=== PATIENT | female | born 2000 | race Two or more races ===

== ENCOUNTER 2022-07-14 15:36 | Emergency (ER) | payer MEDICAID ==
[~2022-07-14] VITALS: Ht 162.6 cm; Wt 54.4 kg
--- NOTE | 2022-07-14 16:02 | NUR ---
DR HAYWARD AT BEDSIDE FOR EVAL
--- NOTE | 2022-07-14 16:07 | NUR ---
URINE SAMPLE COLLECTED AND SENT TO LAB
[2022-07-14] MEDS ORDERED: ONDANSETRON 4 MG TAB.RAPDIS ONE (16:08)
[2022-07-14 16:23] LABS: BILIRUBIN,URINE NEGATIVE (NEGATIVE); COLOR,URINE YELLOW (YELLOW); LEUKOCYTE ESTERASE ,URINE NEGATIVE (NEGATIVE); NITRITE, URINE NEGATIVE (NEGATIVE); PROTEIN,URINE NEGATIVE (NEGATIVE); UGLUCOSE NEGATIVE (NEGATIVE)
[2022-07-14] MEDS ORDERED: ONDANSETRON 4 MG TAB.RAPDIS SL ONE (16:30)
--- NOTE | 2022-07-14 16:40 | NUR ---
PT REFUSED ZOFRAN MEDICATION, INFORMED ABT RISKS AND BENEFITS. PT A/O X4. DR HAYWARD MADE AWARE.
[2022-07-14 16:50] LABS: BACTERIA,URINE Few /HPF (None Seen); RBC,URINE 0-2 /HPF (0-2); SQUAMOUS EPITHELIAL CELL,UR Few /HPF (None Seen); WBC,URINE NONE SEEN /HPF (0-3)
[2022-07-14 16:51] LABS: BASOPHILS % (AUTO) 0.3 % (0.0-2.0); EOSINOPHILS % (AUTO) 0.7 % (0.0-6.0); HEMATOCRIT 38 % (33-45); HEMOGLOBIN 12.5 g/dL (11.5-14.8); LYMPHOCYTES # (AUTO) 1.5 K/uL (0.8-4.8); LYMPHOCYTES % (AUTO) 20.9 % (20.0-44.0); MEAN CORPUSCULAR HGB CONC 33 g/dl (31.0-36.0); MEAN CORPUSCULAR VOLUME 86 fL (82-100); MONOCYTES # (AUTO) 0.6 K/uL (0.1-1.30); MONOCYTES % (AUTO) 7.8 % (2.0-12.0); NEUTROPHILS % (AUTO) 70.3 % (43.0-81.0); PLATELET COUNT (AUTO) 235 K/uL (150-450); RED BLOOD CELL COUNT(AUTO) 4.41 MIL/uL (4.0-5.2); WHITE BLOOD COUNT (AUTO) 7.1 K/uL (4.3-11.0)
[2022-07-14 17:08] LABS: ALBUMIN 4.2 g/dL (3.4-5.0); BILIRUBIN,DIRECT 0.1 mg/dL (0.0-0.2); BILIRUBIN,TOTAL 0.3 mg/dL (0.2-1.0); CALCIUM, SERUM 9.2 mg/dL (8.5-10.1); CREATININE 0.7 mg/dL (0.6-1.3); POTASSIUM 3.4 mmol/L (3.5-5.1); TOTAL PROTEIN, SERUM 7.7 g/dL (6.4-8.2)
--- NOTE | 2022-07-14 18:29 | NUR ---
Patient discharged to home in stable condition. Written and verbal after care instructions given. Patient verbalizes understanding of instruction.
[2022-07-14 18:30] VITALS: BP 129/74
== END 2022-07-14 18:31 | disposition home or self-care (01) ==
LOC: ER 15:43
DX: O26.891 Other specified pregnancy related conditions, first trimester (principal); R10.9 Unspecified abdominal pain; O21.9 Vomiting of pregnancy, unspecified; Z3A.01 Less than 8 weeks gestation of pregnancy
CPT/HCPCS: 99284; 76856; 85025; 80048; 87086; 83690; 80076; 84703; 81001; 36415; 86850; 84702; Q0162

== ENCOUNTER 2022-07-23 17:24 | Emergency (ER) | payer MEDICAID ==
[~2022-07-23] VITALS: Ht 162.6 cm; Wt 54.9 kg
--- NOTE | 2022-07-23 18:03 | NUR ---
URINE COLLECTED AND SENT
--- NOTE | 2022-07-23 18:07 | NUR ---
IV ESTABLIHSHED L AC 20G
[2022-07-23 18:29] LABS: BASOPHILS % (AUTO) 0.3 % (0.0-2.0); EOSINOPHILS % (AUTO) 1.6 % (0.0-6.0); HEMATOCRIT 40 % (33-45); HEMOGLOBIN 13.1 g/dL (11.5-14.8); LYMPHOCYTES # (AUTO) 1.7 K/uL (0.8-4.8); LYMPHOCYTES % (AUTO) 26.6 % (20.0-44.0); MEAN CORPUSCULAR HGB CONC 33 g/dl (31.0-36.0); MEAN CORPUSCULAR VOLUME 87 fL (82-100); MONOCYTES # (AUTO) 0.6 K/uL (0.1-1.30); MONOCYTES % (AUTO) 9.6 % (2.0-12.0); NEUTROPHILS # (AUTO) 3.9 K/uL (1.8-8.9); NEUTROPHILS % (AUTO) 61.9 % (43.0-81.0); PLATELET COUNT (AUTO) 271 K/uL (150-450); RED BLOOD CELL COUNT(AUTO) 4.59 MIL/uL (4.0-5.2); WHITE BLOOD COUNT (AUTO) 6.3 K/uL (4.3-11.0)
[2022-07-23 18:48] LABS: CALCIUM, SERUM 9.5 mg/dL (8.5-10.1); CREATININE 0.8 mg/dL (0.6-1.3); POTASSIUM 3.5 mmol/L (3.5-5.1)
[2022-07-23 18:49] LABS: BILIRUBIN,URINE NEGATIVE (NEGATIVE); COLOR,URINE YELLOW (YELLOW); LEUKOCYTE ESTERASE ,URINE NEGATIVE (NEGATIVE); NITRITE, URINE NEGATIVE (NEGATIVE); PH,URINE 5.5 (5.0-8.0); PROTEIN,URINE NEGATIVE (NEGATIVE); UGLUCOSE NEGATIVE (NEGATIVE); UROBILINOGEN,URINE 0.2 EU/dL (0.2)
[2022-07-23] MEDS ORDERED: ACETAMINOPHEN 325 MG TABLET PO ONE (19:00)
[2022-07-23 19:03] LABS: BACTERIA,URINE 2+ /HPF (None Seen); RBC,URINE 21-50 /HPF (0-2)
[2022-07-23 19:14] LABS: ALBUMIN 4.2 g/dL (3.4-5.0); BILIRUBIN,DIRECT 0.1 mg/dL (0.0-0.2); BILIRUBIN,TOTAL 0.4 mg/dL (0.2-1.0); TOTAL PROTEIN, SERUM 7.7 g/dL (6.4-8.2)
[2022-07-23] MEDS ORDERED: ACETAMINOPHEN 325 MG TABLET ONE (19:23)
[2022-07-23] MEDS ORDERED: PNV1TABL57 PO (19:56)
[2022-07-23] MEDS ORDERED: CEPH500T PO (19:56)
[2022-07-23 20:18] VITALS: BP 121/60
--- NOTE | 2022-07-23 20:18 | NUR ---
Patient discharged to home in stable condition. Written and verbal after care instructions given. Patient verbalizes understanding of instruction.
== END 2022-07-23 20:35 | disposition home or self-care (01) ==
LOC: ER 17:28
DX: O26.891 Other specified pregnancy related conditions, first trimester (principal); R10.2 Pelvic and perineal pain; R82.71 Bacteriuria; Z3A.01 Less than 8 weeks gestation of pregnancy
CPT/HCPCS: 36415; 76805-TC; 80048-TC; 80076-TC; 81001; 84702-TC; 84703-TC; 85025-TC; 86850-TC; 87086-TC

== ENCOUNTER 2023-09-05 15:10 | Emergency (ER) | payer MEDICAID ==
[~2023-09-05] VITALS: Ht 170.2 cm; Wt 59.0 kg
[~2023-09-05 15:10] MED LIST: CEPH500T PO; PNV1TABL57 PO
[2023-09-05 15:48] VITALS: BP 100/63; TEMP 98.6
[2023-09-05 15:58] VITALS: O2SAT 100
[2023-09-05] MEDS: ACETAMINOPHEN ES 500 MG TABLET PO ONE (16:00)
[2023-09-05] MEDS: IBUPROFEN 600 MG TABLET PO ONE (16:00)
[2023-09-05] MEDS ORDERED: METO-295 PO (16:58)
[2023-09-05] MEDS ORDERED: KETO10TA2 PO (16:58)
[2023-09-05] MEDS ORDERED: IBUPROFEN 400 MG TABLET ONE (17:00)
[2023-09-05] MEDS ORDERED: ACETAMINOPHEN ES 500 MG TABLET ONE (17:00)
== END 2023-09-05 17:35 | disposition home or self-care (01) ==
LOC: ER 15:16
DX: S09.90XA Unspecified injury of head, initial encounter (principal); W18.30XA Fall on same level, unspecified, initial encounter; Y93.89 Activity, other specified; Y92.89 Other specified places as the place of occurrence of the external cause; Y99.8 Other external cause status
CPT/HCPCS: 70450-TC